=== PATIENT | male | born 1970 | race Caucasian/White ===

== ENCOUNTER 2020-07-08 13:06 | Emergency (ER) | payer MEDICAID ==
[~2020-07-08] VITALS: Ht 177.8 cm; Wt 86.2 kg
--- NOTE | 2020-07-08 13:15 | NUR ---
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 On room air, breathing evenly and unlabored. connected to the monitor and pulse ox. kept comfortable, will continue to monitor accordingly.
--- NOTE | 2020-07-08 13:27 | NUR ---
IV access initiated and blood drawned and sent to lab.
[2020-07-08 13:29] LABS: BASOPHILS # (AUTO) 0.1 /CMM (0.0-0.2); BASOPHILS % (AUTO) 0.8 % (0.0-2.0); EOSINOPHILS % (AUTO) 1.9 % (0.0-6.0); HEMATOCRIT 42 % (39-51); HEMOGLOBIN 14.1 g/dL (13.5-17.5); LYMPHOCYTES # (AUTO) 2.5 /CMM (0.8-4.8); LYMPHOCYTES % (AUTO) 39.4 % (20.0-44.0); MEAN CORPUSCULAR HGB CONC 33 g/dl (31.0-36.0); MEAN CORPUSCULAR VOLUME 92 fL (80-96); MONOCYTES # (AUTO) 0.5 /CMM (0.1-1.30); NEUTROPHILS # (AUTO) 3.3 /CMM (1.8-8.9); NEUTROPHILS % (AUTO) 50.9 % (43.0-81.0); PLATELET COUNT (AUTO) 302 /CMM (150-450); RED BLOOD CELL COUNT(AUTO) 4.58 MIL/uL (4.5-6.0); WHITE BLOOD COUNT (AUTO) 6.5 K/uL (4.3-11.0)
[2020-07-08 13:58] LABS: CALCIUM, SERUM 9.1 mg/dL (8.5-10.1); CARBON DIOXIDE 24 mmol/L (21-32); CHLORIDE 106 mmol/L (98-107); CREATININE 0.9 mg/dL (0.6-1.3); GLUCOSE 128 mg/dL (74-106); SODIUM SERUM 141 mmol/L (136-145); UREA NITROGEN, BLOOD 29 mg/dL (7-18)
[2020-07-08] MEDS ORDERED: ACETAMINOPHEN 650 MG/20.3 ML UDC PO ONE (14:00)
[2020-07-08] MEDS ORDERED: ASPIRIN 81 MG TAB.CHEW PO ONE (14:00)
[2020-07-08] MEDS ORDERED: ACETAMINOPHEN 325 MG TABLET ONE (14:03)
[2020-07-08 14:10] LABS: B-TYPE NATRIURETIC PEPTIDE 61 PG/ML (0-125)
[2020-07-08] MEDS ORDERED: ONDANSETRON HCL/PF 4 MG/2 ML VIAL IV ONE (15:30)
[2020-07-08] MEDS ORDERED: ONDANSETRON HCL/PF 4 MG/2 ML VIAL ONE (15:30)
--- NOTE | 2020-07-08 17:24 | NUR ---
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 [phone] ETA. TRIP # [id number]
[2020-07-08 19:05] VITALS: BP 121/90
--- NOTE | 2020-07-08 19:13 | NUR ---
transfered back to [facility]. stable condition.
[2020-07-11] MEDS ORDERED: ASPI-1420 PO (15:02)
[2020-07-11] MEDS ORDERED: TRAZ-182 PO (15:02)
[2020-07-11] MEDS ORDERED: DIAZ5TAB4 PO (15:02)
[2020-07-11] MEDS ORDERED: CLOP75TA15 PO (15:02)
[2020-07-11] MEDS ORDERED: PARO-64 PO (15:02)
[2020-07-11] MEDS ORDERED: CARV3.122 PO (15:02)
[2020-07-11] MEDS ORDERED: LAMO25TA10 PO (15:02)
[2020-07-11] MEDS ORDERED: NITR0.4T48 SL (15:02)
[2020-07-11] MEDS ORDERED: QUET400T PO (15:02)
[2020-07-11] MEDS ORDERED: IBUP-1955 PO (15:02)
== END 2020-07-08 19:16 ==
LOC: ER 13:10
DX: R07.89 Other chest pain (principal); R06.02 Shortness of breath; I11.0 Hypertensive heart disease with heart failure; I50.9 Heart failure, unspecified; F32.9 Major depressive disorder, single episode, unspecified; I25.10 Atherosclerotic heart disease of native coronary artery without angina pectoris; Z95.818 Presence of other cardiac implants and grafts; Z88.6 Allergy status to analgesic agent
CPT/HCPCS: 36415; 71045; 80048; 83880; 84484 ×2; 85025; 93005 ×2; 96374; 99285; J2405

== ENCOUNTER 2020-07-15 10:06 | Emergency (ER) | payer MEDICAID ==
[~2020-07-15] VITALS: Ht 177.8 cm; Wt 91.6 kg
[~2020-07-15 10:06] MED LIST: ASPI-1420 PO; CARV6.25 PO; CLOP75TA15 PO; DIAZ5TAB4 PO; IBUP-1955 PO; ISOS30TA6 PO; LAMO25TA10 PO; NITR0.4T48 SL; PARO-64 PO; QUET400T PO; TRAZ-182 PO
--- NOTE | 2020-07-15 10:06 | NUR ---
JOLLY 89 FROM [facility]IGD[facility] CHEEK C/O CHEST PAIN PRESSURE LIKE. PT IS AAOX4, NOT IN RESPIRATORY DISTRESS, HOOKED TO FORENSIC ARTIST, KEPT RESTED AND COMFORTABLE. WILL CONTINUE TO MONITOR.
--- NOTE | 2020-07-15 10:11 | NUR ---
SEEN AND EXAMINED BY .
--- NOTE | 2020-07-15 10:27 | NUR ---
ER PHLEB AT BEDSIDE FOR BLOOD DRAW.
[2020-07-15] MEDS ORDERED: MORPHINE SULFATE INJ 4 MG/ML DISP.SYRIN ONE (10:35)
--- NOTE | 2020-07-15 10:41 | NUR ---
MACHINE PAN GREASER AT BEDSIDE FOR XRAY.
[2020-07-15 10:43] LABS: BASOPHILS % (AUTO) 0.4 % (0.0-2.0); HEMATOCRIT 44 % (39-51); LYMPHOCYTES # (AUTO) 1.4 /CMM (0.8-4.8); LYMPHOCYTES % (AUTO) 16.1 % (20.0-44.0); MEAN CORPUSCULAR HGB CONC 34 g/dl (31.0-36.0); MEAN CORPUSCULAR VOLUME 92 fL (80-96); MONOCYTES # (AUTO) 0.6 /CMM (0.1-1.30); MONOCYTES % (AUTO) 6.7 % (2.0-12.0); NEUTROPHILS # (AUTO) 6.5 /CMM (1.8-8.9); NEUTROPHILS % (AUTO) 75.8 % (43.0-81.0); PLATELET COUNT (AUTO) 427 /CMM (150-450); RED BLOOD CELL COUNT(AUTO) 4.84 MIL/uL (4.5-6.0); WHITE BLOOD COUNT (AUTO) 8.5 K/uL (4.3-11.0)
[2020-07-15 10:57] LABS: CALCIUM, SERUM 9.3 mg/dL (8.5-10.1); CARBON DIOXIDE 27 mmol/L (21-32); CHLORIDE 103 mmol/L (98-107); GLUCOSE 122 mg/dL (74-106); POTASSIUM 4.2 mmol/L (3.5-5.1); SODIUM SERUM 139 mmol/L (136-145); UREA NITROGEN, BLOOD 27 mg/dL (7-18)
[2020-07-15] MEDS ORDERED: MORPHINE SULFATE INJ 2 MG/ML DISP.SYRIN IM ONE (11:00)
--- NOTE | 2020-07-15 11:28 | NUR ---
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 ETA [phone]
--- NOTE | 2020-07-15 11:38 | NUR ---
CALLED KITCHEN FOR LUNCH TRAY.
[2020-07-15] MEDS ORDERED: LORAZEPAM 1 MG TABLET ONE (12:56)
[2020-07-15] MEDS ORDERED: LORAZEPAM 1 MG TABLET PO ONE (13:00)
--- NOTE | 2020-07-15 13:09 | NUR ---
Patient discharged to [facility] in stable condition. Written and verbal after care instructions given. Patient verbalizes understanding of instruction.
--- NOTE | 2020-07-15 13:09 | NUR ---
report given to ems for pt transfer back to [facility].
[2020-07-15 13:18] VITALS: BP 127/85
== END 2020-07-15 13:18 ==
LOC: ER 10:09
DX: I20.9 Angina pectoris, unspecified (principal); I11.0 Hypertensive heart disease with heart failure; I50.9 Heart failure, unspecified; F32.9 Major depressive disorder, single episode, unspecified; Z95.818 Presence of other cardiac implants and grafts; Z88.8 Allergy status to other drugs, medicaments and biological substances; Z88.6 Allergy status to analgesic agent; Z60.2 Problems related to living alone; Z79.899 Other long term (current) drug therapy; Z79.82 Long term (current) use of aspirin
CPT/HCPCS: 36415; 71045; 80048; 84484; 85025; 93005 ×2; 96372; 99285; J2270